=== PATIENT | female | born 1995 | race Hispanic/Latino ===

== ENCOUNTER 2019-10-20 19:52 | Emergency (ER) | payer BC ==
--- NOTE | 2019-10-20 20:19 | Event Note ---
ED Screening Note Date of service: 10/20/19 Time: 20:17 ED Screening Note: 24 y o female presents with numbness and pain s/p fall of a 4 foot ladder 2 days ago This initial assessment/diagnostic orders/clinical plan/treatment(s) is/are subject to change based on patients health status, clinical progression and re- assessment by fellow clinical providers in the ED. Further treatment and workup at subsequent clinical providers discretion. Patient/guardian urged not to elope from the ED as their condition may be serious if not clinically assessed and managed. Initial orders include: CT head and cerv
--- NOTE | 2019-10-20 21:21 | Cat Scan Report ---
CT BRAIN: 10/20/2019 INDICATION / CLINICAL INFORMATION: head trauma r/t fall off of a 4ft ladder. COMPARISON: None available. FINDINGS: BRAIN/INTRACRANIAL STRUCTURES: Unenhanced brain demonstrate no evidence of acute intracranial abnorma lity. Ventricles and sulci are at the upper limits of normal in size and shape for a patient of this age. There is no evidence of acute ischemic injury, hemorrhage, or mass. There are no abnormal extra-axial fluid collections. EXTRACRANIAL STRUCTURES: Unremarkable. IMPRESSION: No acute abnormality. All CT scans at this location are performed using dose reduction to ALARA by means of automated expos ure control. Signer Name: Zeyad Chirstian MD Signed: 10/20/2019 9:17 PM Workstation Name: [id number]
--- NOTE | 2019-10-20 21:38 | Cat Scan Report ---
CT CERVICAL SPINE: 10/20/2019 INDICATION / CLINICAL INFORMATION: head trauma r/t fall off of a 4ft ladder. COMPARISON: None available. FINDINGS: CT images of the cervical spine were obtained. Images are evaluated in the axial, coronal, and sagitt al planes. There is no evidence of acute abnormality. Vertebral body height and alignment is well preserved. CRANIOCERVICAL JUNCTION: Unremarkable. PARASPINAL STRUCTURES: Incidental note is made of tonsillar lymphoid hyperplasia and mild upper cervi max adenopathy. IMPRESSION: No evidence of acute traumatic injury. All CT scans at this location are performed using dose reduction to ALARA by means of automated expos ure control. Signer Name: Zeyad Christian MD Signed: 10/20/2019 9:34 PM Workstation Name: [id number]
--- NOTE | 2019-10-20 21:48 | Emergency Department Report ---
ED General Adult HPI - General Chief complaint: Fall Stated complaint: FALL(HEAD NUMB) Time Seen by Provider: 10/20/19 21:39 Source: patient Mode of arrival: Ambulatory Limitations: No Limitations - History of Present Illness Initial comments: Patient is a 24-year-old female who fell from a ladder 2 days ago. Patient states she fell and hit the right side of her head and had a brief episode of loss of consciousness. Patient's had persistent headache and neck pain. Patient states today her fingertips felt numb which prompted her to come to the emergency department. She denies any actual weakness to her arms or legs. States the headache and neck pain are 6 out of 10 in severity. Pain is worse when she moves and better when she rests. - Related Data Previous Rx's Medication Instructions Recorded Last Taken Type Ketorolac [Toradol] 10 mg PO Q6H PRN #12 tablet 10/20/19 Unknown Rx methOCARBAMOL [Robaxin TAB] 500 mg PO Q6H PRN #14 tablet 10/20/19 Unknown Rx traMADoL [Ultram] 50 mg PO Q6HR PRN #12 tablet 10/20/19 Unknown Rx Allergies Allergy/AdvReac Type Severity Reaction Status Date / Time No Known Allergies Allergy Verified 10/20/19 19:59 ED Review of Systems ROS: Stated complaint: FALL(HEAD NUMB) Other details as noted in HPI Comment: All other systems reviewed and negative ED Past Medical Hx - Social History Smoking Status: Current Every Day Smoker Substance Use Type: Alcohol - Medications Home Medications: Home Medications Medication Instructions Recorded Confirmed Last Taken Type Ketorolac [Toradol] 10 mg PO Q6H PRN #12 tablet 10/20/19 Unknown Rx methOCARBAMOL [Robaxin TAB] 500 mg PO Q6H PRN #14 tablet 10/20/19 Unknown Rx traMADoL [Ultram] 50 mg PO Q6HR PRN #12 tablet 10/20/19 Unknown Rx ED Physical Exam - General Limitations: No Limitations General appearance: alert, in no apparent distress - Head Head exam: Present: atraumatic, normocephalic - Eye Eye exam: Present: normal appearance - ENT ENT exam: Present: mucous membranes moist - Neck Neck exam: Present: normal inspection - Respiratory Respiratory exam: Present: normal lung sounds bilaterally. Absent: respiratory distress, wheezes, rales, rhonchi - Cardiovascular Cardiovascular Exam: Present: regular rate, normal rhythm. Absent: systolic murmur, diastolic murmur, rubs, gallop - GI/Abdominal GI/Abdominal exam: Present: soft, normal bowel sounds. Absent: distended, tenderness, guarding - Extremities Exam Extremities exam: Present: normal inspection, full ROM - Back Exam Back exam: Present: normal inspection - Neurological Exam Neurological exam: Present: alert, oriented X3, CN II-XII intact. Absent: motor sensory deficit - Psychiatric Psychiatric exam: Present: normal affect, normal mood - Skin Skin exam: Present: warm, dry, intact, normal color. Absent: rash ED Course Vital Signs 10/20/19 10/20/19 10/20/19 20:00 21:43 22:30 Temperature 97.3 F L 97.8 F Pulse Rate 96 H 94 H Respiratory 16 16 16 Rate Blood Pressure 143/103 Blood Pressure 131/85 [Left] O2 Sat by Pulse 100 99 Oximetry ED Medical Decision Making - Radiology Data [address] [address] Cat Scan Report Signed Patient: SYDNEE URIBE MR#: [id number] : 1995 Acct:[id number] Age/Sex: 24 / F ADM Date: 10/20/19 Loc: ED Attending Dr: Ordering Physician: ALFREDO HOSKINS Date of Service: 10/20/19 Procedure(s): CT head/brain wo con Accession Number(s): [id number] cc: ALFREDO HOSKINS CT BRAIN: 10/20/2019 INDICATION / CLINICAL INFORMATION: head trauma r/t fall off of a 4ft ladder. COMPARISON: None available. FINDINGS: BRAIN/INTRACRANIAL STRUCTURES: Unenhanced brain demonstrate no evidence of acute intracranial abnormality. Ventricles and sulci are at the upper limits of normal in size and shape for a patient of this age. There is no evidence of acute ischemic injury, hemorrhage, or mass. There are no abnormal extra- axial fluid collections. EXTRACRANIAL STRUCTURES: Unremarkable. IMPRESSION: No acute abnormality. All CT scans at this location are performed using dose reduction to ALARA by means of automated exposure control. Signer Name: Zeyad Christian MD Signed: 10/20/2019 9:17 PM Workstation Name: [id number] [address] [place] [address] Cat Scan Report Signed Patient: SYDNEE URIBE MR#: [id number] : 1995 Acct:[id number] Age/Sex: 24 / F ADM Date: 10/20/19 Loc: ED Attending Dr: Ordering Physician: ALFREDO HOSKINS Date of Service: 10/20/19 Procedure(s): CT cervical spine wo con Accession Number(s): [id number] cc: ALFREDO HOSKINS CT CERVICAL SPINE: 10/20/2019 INDICATION / CLINICAL INFORMATION: head trauma r/t fall off of a 4ft ladder. COMPARISON: None available. FINDINGS: CT images of the cervical spine were obtained. Images are evaluated in the axial, coronal, and sagittal planes. There is no evidence of acute abnormality. Vertebral body height and alignment is well preserved. CRANIOCERVICAL JUNCTION: Unremarkable. PARASPINAL STRUCTURES: Incidental note is made of tonsillar lymphoid hyperplasia and mild upper cervical adenopathy. IMPRESSION: No evidence of acute traumatic injury. All CT scans at this location are performed using dose reduction to ALARA by means of automated exposure control. Signer Name: Zeyad Christian MD Signed: 10/20/2019 9:34 PM Workstation Name: [id number] - Medical Decision Making Patient was given a soft collar here in the emergency department to help support her neck and head. Patient likely with a mild concussion and also could have some cervical radiculopathy however no cervical fractures or intracranial hemorrhage have been found. Patient be discharged home follow with her primary care physician. Critical care attestation.: If time is entered above; I have spent that time in minutes in the direct care of this critically ill patient, excluding procedure time. ED Disposition Clinical Impression: Cervical radiculopathy Concussion Qualifiers: Encounter type: initial encounter Loss of consciousness presence/duration: with LOC of 30 min or less Qualified Code(s): S06.0X1A - Concussion with loss of consciousness of 30 minutes or less, initial encounter Cervical strain, acute Qualifiers: Encounter type: initial encounter Qualified Code(s): S16.1XXA - Strain of muscle, fascia and tendon at neck level, initial encounter Disposition: DC- TO HOME OR SELFCARE Is pt being admited?: No Does the pt Need Aspirin: No Condition: Stable Instructions: Muscle Strain (ED), Cervical Sprain (ED), Cervical Radiculopathy (ED), Concussion (ED) Referrals: PRIMARY CARE, [Primary Care Provider] - 3-5 Days Time of Disposition: 22:38
[2019-10-20] MEDS ORDERED: KETOROLAC 10 MG TAB PO ONE (22:41)
[2019-10-20 23:17] VITALS: BP 122/68
== END 2019-10-20 23:17 | disposition home or self-care (01) ==
LOC: EDSEX → ED 19:52
DX: S06.0X9A Concussion with loss of consciousness of unspecified duration, initial encounter (principal); S16.1XXA Strain of muscle, fascia and tendon at neck level, initial encounter; M54.12 Radiculopathy, cervical region; F17.200 Nicotine dependence, unspecified, uncomplicated; Z79.899 Other long term (current) drug therapy; W19.XXXA Unspecified fall, initial encounter; Y93.89 Activity, other specified; Y92.89 Other specified places as the place of occurrence of the external cause; Y99.8 Other external cause status
CPT/HCPCS: 70450; 72125; 99283